=== PATIENT | male | born 1970 | race Caucasian/White ===

== ENCOUNTER 2016-06-26 20:18 | Emergency (ER) | payer OTHER ==
[2016-06-26 20:43] LABS: Urine Bilirubin Negative (Negative); Urine Glucose Negative (Negative); Urine Nitrite Negative (Negative)
--- NOTE | 2016-06-26 21:13 | ED ---
GI/ HPI - HPI Summary HPI Summary: Patient presents with one day of left flank pain that began without injury. He denies previous episodes of pain like this. 30 minutes ago he noticed his urine appeared to have blood in it, which has also never happened. He denies increased frequency, urgency or burning with urination. He denies fever, chills or abdominal pain. - History of Current Complaint Chief Complaint: EDUrogenitalProblems Time Seen by Provider: 06/26/16 20:46 Stated Complaint: RED URINE,FLANK DISCOMFORT Hx Obtained From: Patient Onset/Duration: Started Hours Ago Timing: Constant Severity: Mild Current Severity: Mild Vaginal Bleeding Description: Bright Red Pain Intensity: 1 Location of Pain: Flank - left Pain Characteristics: Sharp Associated Signs and Symptoms: Positive: Hematuria Aggravating Factor(s): Nothing Alleviating Factor(s): Nothing - Allergy/Home Medications Allergies/Adverse Reactions: Allergies Allergy/AdvReac Type Severity Reaction Status Date / Time No Known Allergies Allergy Verified 06/26/16 20:46 PMH/Surg Hx/FS Hx/Imm Hx Psychiatric History: Reports: Hx Substance Abuse Infectious Disease History: Yes Infectious Disease History: Denies: Traveled Outside the [place] in Last 30 Days - Family History Known Family History: Positive: None - Social History Occupation: Unemployed Lives: Residential Alcohol Use: Rare Substance Use Type: Reports: None Smoking Status (MU): Never Smoked Tobacco Review of Systems Negative: Fever, Chills Negative: Abdominal Pain Positive: flank pain - left, hematuria All Other Systems Reviewed And Are Negative: Yes Physical Exam - Summary Physical Exam Summary: Patient is seated comfortably in exam chair in no acute distress. Triage Information Reviewed: Yes Vital Signs On Initial Exam: Initial Vitals Temp Pulse Resp BP Pulse Ox 97.2 F 58 12 118/73 98 06/26/16 20:19 06/26/16 20:19 06/26/16 20:19 06/26/16 20:19 06/26/16 20:19 Vital Signs Reviewed: Yes Appearance: Positive: Well-Appearing, No Pain Distress, Well-Nourished Skin: Positive: Warm, Skin Color Reflects Adequate Perfusion, Dry, Soft Head/Face: Positive: Normal Head/Face Inspection Eyes: Positive: EOMI, VITALY, Conjunctiva Clear ENT: Positive: Hearing grossly normal Respiratory/Lung Sounds: Positive: Clear to Auscultation, Breath Sounds Present Cardiovascular: Positive: RRR Abdomen Description: Positive: Nontender, Soft, CVA Tenderness (L). Negative: CVA Tenderness (R), Distended, Guarding Bowel Sounds: Positive: Present Musculoskeletal: Negative: Edema Left, Edema Right Neurological: Positive: Sensory/Motor Intact, Alert, Oriented to Person Place, Time, [place] Bundle Intact Distally, Normal Gait Psychiatric: Positive: Affect/Mood Appropriate AVPU Assessment: Alert - [place] Coma Scale Coma Scale Total: 15 Diagnostics - Vital Signs Vital Signs Temp Pulse Resp BP Pulse Ox 06/26/16 20:19 97.2 F 58 12 118/73 98 - Laboratory Lab Results: Lab Results 06/26/16 Range/Units 20:35 Urine Color Yellow Urine Appearance Clear Urine pH 6.0 (5-9) Ur Specific [place] 1.025 (1.010-1.030) Urine Protein Negative (Negative) Urine Ketones Negative (Negative) Urine Blood Negative (Negative) Urine Nitrate Negative (Negative) Urine Bilirubin Negative (Negative) Urine Urobilinogen Negative (Negative) Ur Leukocyte Esterase Negative (Negative) Urine Glucose Negative (Negative) Lab Statement: Any lab studies that have been ordered have been reviewed, and results considered in the medical decision making process. - CT No standard instances CT Interpretation: No Acute Changes CT Interpretation Completed By: Radiologist - Epiploic appendigitis GIGU Course/Dx - Diagnoses Differential Diagnoses - Male: Cystitis, Pyelonephritis, Renal Calculi, Renal Colic, Ureteral Calculi, Urethritis, Urinary Tract Infection Provider Diagnoses: Hematuria, Flank pain Discharge - Discharge Plan Condition: Stable Disposition: HOME Patient Education Materials: Hematuria (ED), Flank Pain (ED) Referrals: Sabine Hamm PA [Primary Care Provider] - Tulio Angel MD [Medical Doctor] - Additional Instructions: Please follow-up with urology in the next 1-2 days for evaluation. Drink extra fluids. Return to the emergency department if your symptoms worsen.
--- NOTE | 2016-06-26 21:56 | RAD ---
CLINICAL HISTORY: Left flank pain and hematuria COMPARISON: None TECHNIQUE: Noncontrast CT examination of the abdomen and pelvis from the lung bases through the initial tuberosities. FINDINGS: VISUALIZED LUNG BASES: The visualized lung bases are grossly clear. There is no pleural effusion. ABDOMEN AND PELVIS: Evaluation of the solid organs and vasculature is limited without intravenous contrast. The liver, spleen, pancreas and adrenal glands are grossly normal in appearance. The gallbladder is normal. The kidneys are normal in appearance without focal mass, calcification or signs of hydronephrosis. Evaluation of the gastrointestinal tract is limited without oral contrast. The small and large bowel are not distended.The patient's normal appendix is identified in the right lower quadrant (coronal image 38). There are rectosigmoid diverticula but none exhibit focal inflammatory change characteristic of diverticulitis and there is no focal bowel wall thickening. Just anterior to the proximal portion of the sigmoid colon there is a 1.1 x 1.9 cm fat density oval structure, hypointense in the center with hyperattenuating tissue surrounding. Adjacent to this finding the peritoneal fat is normal. There is no gross retroperitoneal or mesenteric lymphadenopathy. Coarse calcifications are noted in the normal sized prostate gland. The abdominal aorta and iliac arteries are normal in course and diameter. Multilevel degenerative changes of the lower thoracic and lumbar spine includes loss of intervertebral disc height, marginal osteophyte formation and lower lumbar vacuum disc phenomenon. There is a hemangioma at the L1 vertebral body.There are no sinister bone lesions. IMPRESSION: 1. CT findings are most compatible with epiploic appendagitis involving the proximal sigmoid colon. Diverticulitis is considered much less likely. 2. Diverticulosis without characteristic CT findings of diverticulitis including bowel wall thickening and inflammatory change of the pericolonic fat. 3. No renal calculi or signs of hydronephrosis identified. 4. Additional chronic and degenerative changes as described in the body of the report.
[2016-06-26 22:23] VITALS: BP 107/65
== END 2016-06-26 22:23 | disposition home or self-care (01) ==
LOC: ED 20:18
DX: R31.9 Hematuria, unspecified (principal); R10.84 Generalized abdominal pain
CPT/HCPCS: 74176; 81003; 99282